=== PATIENT | male | born 1950 | race Caucasian/White ===

== ENCOUNTER 2024-09-21 16:25 | Emergency (ER) | payer MEDICARE ==
[2024-09-21] MEDS ORDERED: Sodium Chloride 0.9% 10 ML Syringe FLUSH PRN (16:29)
[2024-09-21 16:38] LABS: BASOPHILS ABSOLUTE AUTO 0.03 K/uL (0.00-0.20); BASOPHILS PERCENT AUTO 0.3 % (0.0-2.0); EOSINOPHILS ABSOLUTE AUTO 0.07 K/uL (0.00-0.50); EOSINOPHILS PERCENT AUTO 0.7 % (0.0-5.0); HEMATOCRIT 33.9 % (39.0-49.0); HEMOGLOBIN 12.3 g/dL (13.1-16.8); IMMATURE GRAN ABSOLUTE AUTO 0.01 10^3/uL (0.00-0.04); IMMATURE GRAN PERCENT AUTO 0.1 % (0.0-0.4); LYMPHOCYTES ABSOLUTE AUTO 1.07 K/uL (0.50-3.50); MEAN CORPUSCULAR HGB CONC 36.3 g/dL (31.7-36.0); MEAN CORPUSCULAR VOLUME 90.9 fL (84.0-98.0); MONOCYTES ABSOLUTE AUTO 1.01 K/uL (0.00-1.00); MONOCYTES PERCENT AUTO 9.4 % (2.0-14.0); NEUTROPHILS PERCENT AUTO 79.5 % (45.0-80.0); PLATELET COUNT,PLT 210 K/uL (150-350); RED BLOOD CELL COUNT 3.73 M/uL (4.33-5.41); RED CELL DISTRIBUTION WIDTH 13.1 % (11.2-14.1); WHITE BLOOD CELL COUNT,WBC 10.7 K/uL (4.0-10.2)
[2024-09-21 16:59] LABS: ALANINE AMINOTRANSFERASE,ALT 22 U/L (12-78); ALBUMIN 3.9 g/dL (3.4-5.0); ALKALINE PHOSPHATASE 73 IU/L (46-116); ASPARTATE AMNIOTRANSFERASE,AST 15 U/L (15-37); BILIRUBIN TOTAL 0.7 mg/dL (0.2-1.0); BLOOD UREA NITROGEN,BUN 24 mg/dL (7-18); CALCIUM 9.1 mg/dL (8.5-10.1); CHLORIDE,CL 102 mmol/L (98-107); CREATININE 1.32 mg/dL (0.51-1.17); ESTIMATED GFR 56 mL/min (>=60); GLUCOSE RANDOM 118 mg/dL (70-99); POTASSIUM,K 4.2 mmol/L (3.5-5.1); PROTEIN TOTAL,TP 7.4 g/dL (6.4-8.2); SODIUM,NA 139 mmol/L (136-145)
[2024-09-21] MEDS: cefTRIAXone 2 GM Vial IVPUSH ONE (17:01)
== END 2024-09-21 17:50 | disposition home or self-care (01) ==
LOC: LL.ED 16:25
DX: S51.852A Open bite of left forearm, initial encounter (principal); L03.114 Cellulitis of left upper limb; W55.01XA Bitten by cat, initial encounter
CPT/HCPCS: 36415; 80053; 85025; 96374; 99283; J0696